=== PATIENT | male | born 1980 | race Caucasian/White ===

== ENCOUNTER 2017-01-18 11:07 | Emergency (ER) | payer SELFPAY ==
[~2017-01-18 11:07] MED LIST: CEPH-460 PO; ZOFR4TAB3 SL
[2017-01-18 11:24] VITALS: BP 155/94; PULSE 68; RESP 20; TEMP 97.8
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
[2017-01-18] MEDS ORDERED: SODIUM CHLORIDE 0.9% FLUSH 5 ML FLUSH IVF PRN (12:15)
[2017-01-18] MEDS ORDERED: MORPHINE SULFATE 4 MG/ML INJ IV PUSH ONE (12:15)
[2017-01-18] MEDS ORDERED: FAMOTIDINE 20 MG/2 ML VIAL IV PUSH ONE (12:15)
[2017-01-18] MEDS ORDERED: ONDANSETRON HCL 4 MG/2 ML VIAL IVP ONE (12:15)
[2017-01-18 12:27] LABS: AUTOMATED NEUTROPHIL # 5.5 TH/MM3 (1.8-7.7); BASOPHIL # 0.1 TH/MM3 (0-0.2); BASOPHIL % 0.7 % (0.0-2.0); EOSINOPHIL # 0.3 TH/MM3 (0-0.4); EOSINOPHIL % 3.4 % (0.0-4.0); HEMATOCRIT 36.3 % (39.0-51.0); HEMO FLAGS DIFF FINAL; LYMPH % 16.4 % (9.0-44.0); LYMPHOCYTE # 1.2 TH/MM3 (1.0-4.8); MEAN CELL VOLUME 89.7 FL (80.0-100.0); MEAN CORPUSCULAR HEMOGLOBIN 30.4 PG (27.0-34.0); MEAN CORPUSCULAR HGB CONC 33.8 % (32.0-36.0); MONO % 4.6 % (0.0-8.0); NEUT % 74.9 % (16.0-70.0); PLATELET COUNT 326 TH/MM3 (150-450); RED BLOOD COUNT 4.04 MIL/MM3 (4.50-5.90); RED CELL DISTRIBUTION WIDTH 14.6 % (11.6-17.2); WHITE BLOOD COUNT 7.4 TH/MM3 (4.0-11.0)
[2017-01-18 12:30] LABS: BLOOD, URINE NEG (NEG); GLUCOSE,URINE NEG (NEG); KETONE, URINE NEG (NEG); NITRITE,URINE NEG (NEG); PH, URINE 7.5 (5.0-8.5)
[2017-01-18 12:37] LABS: METHOD OF COLLECTION CLEAN CATCH; URINE COLOR YELLOW (YELLW/STRAW)
[2017-01-18 12:38] LABS: COMMENT (UR) CULT NOT INDICATED; CULTURE IF INDICATED CULT NOT INDICATED; RBC, URINE 0-3 /hpf (0-3); SQUAMOUS EPITHELIAL CELL URINE 0-5 /hpf (0-5)
[2017-01-18 12:41] LABS: CHLORIDE 107 MEQ/L (98-107); POTASSIUM 3.8 MEQ/L (3.5-5.1); SODIUM (NA) 143 MEQ/L (136-145)
[2017-01-18 12:45] LABS: ANION GAP 6 MEQ/L (5-15); BICARBONATE 30.2 MEQ/L (21.0-32.0); BLOOD UREA NITROGEN 13 MG/DL (7-18)
[2017-01-18 12:48] LABS: ALT (GPT) 26 U/L (12-78); AST (GOT) 26 U/L (15-37); GLOMERULAR FILTRATION RATE 116 ML/MIN (>89)
[2017-01-18 12:49] LABS: TOTAL BILIRUBIN ADULT 0.3 MG/DL (0.2-1.0)
[2017-01-18 12:51] LABS: ALKALINE PHOSPHATASE 55 U/L (45-117)
--- NOTE | 2017-01-18 14:16 | RADHPO ---
EXAM DATE/TIME: 01/18/2017 13:27 [facility] COMPARISON: No previous studies available for comparison. INDICATIONS : Right upper quadrant pain. MEDICAL HISTORY : Polycystic kidney disease. Ulcer. Borderline hypertension. Kidney stones. SURGICAL HISTORY : Cystoscopy. ENCOUNTER: Initial ACUITY: 3 days PAIN SCORE: 9/10 LOCATION: Right upper quadrant MEASUREMENTS: LIVER: 21.8 cm length COMMON DUCT: 3 mm RIGHT KIDNEY: 16.5 x 6.6 x 8.7 cm FINDINGS: LIVER: Normal echotexture without focal lesion or ductal dilatation. Multiple small subcentimeter cysts are seen COMMON DUCT: No intraluminal mass or stone visualized. GALLBLADDER: Contains no stones, demonstrates no wall thickening or pericholecystic fluid. PANCREAS: The visualized portions are within normal limits. RIGHT KIDNEY: No evidence of hydronephrosis or mass. Multiple cysts the largest in the upper pole measuring 44 x 4 8 x 45 mm. Numerous other smaller ones are seen. Several echogenic foci are seen possibility to nonob structing calculi measuring 4-5 mm. CONCLUSION: 1. Multiple subcentimeter hepatic cysts. 2. Multiple right-sided renal cysts most consistent with polycystic kidney disease. 3. Several echogenic foci in the right kidney could be related to nonobstructing calculi. Luis Ewing MD on January 18, 2017 at 14:12 Board Certified Radiologist. This report was verified electronically.
[2017-01-18] MEDS ORDERED: PRIL20CA9 PO (14:26)
[2017-01-18] MEDS ORDERED: PROM25TA5 PO (14:26)
[2017-01-18 14:49] VITALS: BP 141/79
== END 2017-01-18 14:51 | disposition home or self-care (01) ==
LOC: PHED 11:07
DX: R10.11 Right upper quadrant pain (principal); K52.9 Noninfective gastroenteritis and colitis, unspecified; R50.9 Fever, unspecified; Z72.0 Tobacco use; Z86.79 Personal history of other diseases of the circulatory system; Z87.19 Personal history of other diseases of the digestive system; Z87.442 Personal history of urinary calculi
CPT/HCPCS: 76705; 80053; 81001; 83690; 85025; 96374; 96375; 99284; J2270; J2405

== ENCOUNTER 2017-04-11 16:13 | Emergency (ER) | payer SELFPAY ==
[~2017-04-11] VITALS: Ht 195.6 cm; Wt 80.9 kg
[~2017-04-11 16:13] MED LIST changes: -CEPH-460 PO; +PRIL20CA9 PO; +PROM25TA5 PO; -ZOFR4TAB3 SL
[2017-04-11 16:26] VITALS: BP 145/71; PULSE 100; RESP 18; TEMP 98.4; O2SAT 97
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
[2017-04-11] MEDS ORDERED: TRAM50TA PO (17:29)
[2017-04-11] MEDS ORDERED: PENI250T59 PO (17:29)
== END 2017-04-11 17:34 | disposition home or self-care (01) ==
LOC: PHEFT 16:13
DX: K04.7 Periapical abscess without sinus (principal); N28.9 Disorder of kidney and ureter, unspecified; F17.210 Nicotine dependence, cigarettes, uncomplicated
CPT/HCPCS: 99282

== ENCOUNTER 2017-05-09 10:46 | Emergency (ER) | payer SELFPAY ==
[~2017-05-09] VITALS: Ht 195.6 cm; Wt 81.0 kg
[~2017-05-09 10:46] MED LIST changes: +PENI250T59 PO; -PRIL20CA9 PO; -PROM25TA5 PO; +TRAM50TA PO
[2017-05-09 10:48] VITALS: BP 144/90; PULSE 72; RESP 16; TEMP 97.6; O2SAT 99
[2017-05-09] MEDS ORDERED: SODIUM CHLOR 0.9% 1000 ML INJ 1,000 ML IV SCH (11:07)
--- NOTE | 2017-05-09 11:12 | PD ---
HPI Chief Complaint: Flank/Kidney Pain Time Seen by Provider: 11:03 Travel History International Travel<30 days: No Contact w/Intl Traveler<30days: No Traveled to known affect area: No History of Present Illness HPI 36yo M with PMH of polycystic kidney disease presents to the ED with c/o right abdominal pain and right flank pain since yesterday. +NBNB vomiting. Temperature of 100.2F at home. +Hematuria. +Increased urinary frequency. Denies any chest pain, sob, testicular pain or penile discharge. PFSH Past Medical History Heart Rhythm Problems: Yes Diminished Hearing: No Gastrointestinal Disorders: Yes (ULCERS) Hypertension: No (borderline) Kidney Stones: Yes Past Surgical History Genitourinary Surgery: Yes (CYSTOSCOPY for removal of kidneys stones to right kidney) Social History Alcohol Use: Yes (denies use) Tobacco Use: Yes (smokes currently 2-cigs a day for 1 week prior 1 ppd) Substance Use: Yes (MARIJUANA) Allergies-Medications (Allergen,Severity, Reaction): Coded Allergies: Aspirin (Verified Adverse Reaction, Unknown, 05/09/17) hx of ulcers Nonsteroidal Anti-Inflammatory Agts (Verified Adverse Reaction, Unknown, ) states hx of ulcers Reported Meds & Prescriptions Reported Meds & Active Scripts Active Review of Systems Except as stated in HPI: all other systems reviewed are Neg Physical Exam Narrative GENERAL: 36yo F in moderate distress. SKIN: Focused skin assessment warm/dry. HEAD: Atraumatic. Normocephalic. CARDIOVASCULAR: Regular rate and rhythm. No murmur appreciated. RESPIRATORY: No accessory muscle use. Clear to auscultation. Breath sounds equal bilaterally. GASTROINTESTINAL: Abdomen soft, +TTP RLQ, suprapubic. No rebound tenderness or guarding. BACK: +CVA tenderness right. MUSCULOSKELETAL: No obvious deformities. No clubbing. No cyanosis. No edema. NEUROLOGICAL: Awake and alert. No obvious cranial nerve deficits. Motor grossly within normal limits. Normal speech. PSYCHIATRIC: Appropriate mood and affect; insight and judgment normal. Data Data Last Documented VS Vital Signs Date Time Temp Pulse Resp B/P Pulse Ox O2 Delivery O2 Flow Rate FiO2 05/09/17 12:38 62 18 145/76 98 05/09/17 10:48 97.6 Orders Complete Blood Count With Diff (05/09/17 11:07) Comprehensive Metabolic Panel (05/09/17 11:07) Lipase (05/09/17 11:07) Prothrombin Time / Inr (Pt) (05/09/17 11:07) Act Partial Throm Time (Ptt) (05/09/17 11:07) Urinalysis - C+S If Indicated (05/09/17 11:07) Ct Abd/Pel W Iv Contrast(Rout) (05/09/17 11:07) Iv Access Insert/Monitor (05/09/17 11:07) Ecg Monitoring (05/09/17 11:07) Oximetry (05/09/17 11:07) Morphine Inj (Morphine Inj) (05/09/17 11:15) Ondansetron Inj (Zofran Inj) (05/09/17 11:15) Sodium Chlor 0.9% 1000 Ml Inj (Ns 1000 M (05/09/17 11:07) Sodium Chloride 0.9% Flush (Ns Flush) (05/09/17 11:15) Urine Culture (05/09/17 11:40) Iohexol 350 Inj (Omnipaque 350 Inj) (05/09/17 12:53) Ondansetron Inj (Zofran Inj) (05/09/17 13:30) Ceftriaxone Inj (Rocephin Inj) (05/09/17 13:30) Labs Laboratory Tests Test 05/09/17 11:40 White Blood Count 8.1 TH/MM3 Red Blood Count 4.57 MIL/MM3 Hemoglobin 14.1 GM/DL Hematocrit 41.0 % Mean Corpuscular Volume 89.9 FL Mean Corpuscular Hemoglobin 30.8 PG Mean Corpuscular Hemoglobin 34.3 % Concent Red Cell Distribution Width 12.9 % Platelet Count 283 TH/MM3 Mean Platelet Volume 8.0 FL Neutrophils (%) (Auto) 72.2 % Lymphocytes (%) (Auto) 17.7 % Monocytes (%) (Auto) 5.5 % Eosinophils (%) (Auto) 3.5 % Basophils (%) (Auto) 1.1 % Neutrophils # (Auto) 5.9 TH/MM3 Lymphocytes # (Auto) 1.4 TH/MM3 Monocytes # (Auto) 0.4 TH/MM3 Eosinophils # (Auto) 0.3 TH/MM3 Basophils # (Auto) 0.1 TH/MM3 CBC Comment AUTO DIFF Differential Comment AUTO DIFF CONFIRMED Platelet Estimate NORMAL Platelet Morphology Comment NORMAL Prothrombin Time 10.7 SEC Prothromb Time International 1.0 RATIO Ratio Activated Partial 26.1 SEC Thromboplast Time Urine Collection Type VOIDED Urine Color YELLOW Urine Turbidity CLEAR Urine pH 6.0 Urine Specific [place] 1.017 Urine Protein 30 mg/dL Urine Glucose (UA) NEG mg/dL Urine Ketones NEG mg/dL Urine Occult Blood TRACE Urine Nitrite NEG Urine Bilirubin NEG Urine Leukocyte Esterase NEG Urine WBC 6-8 /hpf Urine WBC Clumps RARE Urine Squamous Epithelial 6-8 /hpf Cells Urine Bacteria RARE /hpf Urine Mucus MOD /lpf Microscopic Urinalysis Comment CULTURE INDICATED Sodium Level 140 MEQ/L Potassium Level 3.4 MEQ/L Chloride Level 101 MEQ/L Carbon Dioxide Level 32.7 MEQ/L Anion Gap 6 MEQ/L Blood Urea Nitrogen 16 MG/DL Creatinine 1.00 MG/DL Estimat Glomerular Filtration 86 ML/MIN Rate Random Glucose 79 MG/DL Calcium Level 8.4 MG/DL Total Bilirubin 0.7 MG/DL Aspartate Amino Transf 25 U/L (AST/SGOT) Alanine Aminotransferase 21 U/L (ALT/SGPT) Alkaline Phosphatase 68 U/L Total Protein 7.6 GM/DL Albumin 3.9 GM/DL Lipase 454 U/L [facility] Medical Decision Making Medical Screen Exam Complete: Yes Emergency Medical Condition: Yes Interpretation(s) Laboratory Tests Test 05/09/17 11:40 White Blood Count 8.1 TH/MM3 (4.0-11.0) Red Blood Count 4.57 MIL/MM3 (4.50-5.90) Hemoglobin 14.1 GM/DL (13.0-17.0) Hematocrit 41.0 % (39.0-51.0) Mean Corpuscular Volume 89.9 FL (80.0-100.0) Mean Corpuscular Hemoglobin 30.8 PG (27.0-34.0) Mean Corpuscular Hemoglobin 34.3 % Concent (32.0-36.0) Red Cell Distribution Width 12.9 % (11.6-17.2) Platelet Count 283 TH/MM3 (150-450) Mean Platelet Volume 8.0 FL (7.0-11.0) Neutrophils (%) (Auto) 72.2 % (16.0-70.0) Lymphocytes (%) (Auto) 17.7 % (9.0-44.0) Monocytes (%) (Auto) 5.5 % (0.0-8.0) Eosinophils (%) (Auto) 3.5 % (0.0-4.0) Basophils (%) (Auto) 1.1 % (0.0-2.0) Neutrophils # (Auto) 5.9 TH/MM3 (1.8-7.7) Lymphocytes # (Auto) 1.4 TH/MM3 (1.0-4.8) Monocytes # (Auto) 0.4 TH/MM3 (0-0.9) Eosinophils # (Auto) 0.3 TH/MM3 (0-0.4) Basophils # (Auto) 0.1 TH/MM3 (0-0.2) CBC Comment AUTO DIFF Differential Comment AUTO DIFF CONFIRMED Platelet Estimate NORMAL (NORMAL) Platelet Morphology Comment NORMAL (NORMAL) Prothrombin Time 10.7 SEC (9.8-11.6) Prothromb Time International 1.0 RATIO Ratio Activated Partial 26.1 SEC Thromboplast Time (24.3-30.1) Urine Collection Type VOIDED Urine Color YELLOW (YELLW/STRAW) Urine Turbidity CLEAR (CLEAR) Urine pH 6.0 (5.0-8.5) Urine Specific [place] 1.017 (1.002-1.035) Urine Protein 30 mg/dL (NEG-TRACE) Urine Glucose (UA) NEG mg/dL (NEG) Urine Ketones NEG mg/dL (NEG) Urine Occult Blood TRACE (NEG) Urine Nitrite NEG (NEG) Urine Bilirubin NEG (NEG) Urine Leukocyte Esterase NEG (NEG) Urine WBC 6-8 /hpf (0-5) Urine WBC Clumps RARE (NONE) Urine Squamous Epithelial 6-8 /hpf (0-5) Cells Urine Bacteria RARE /hpf (NONE) Urine Mucus MOD /lpf (OCC) Microscopic Urinalysis Comment CULTURE INDICATED Sodium Level 140 MEQ/L (136-145) Potassium Level 3.4 MEQ/L (3.5-5.1) Chloride Level 101 MEQ/L (98-107) Carbon Dioxide Level 32.7 MEQ/L (21.0-32.0) Anion Gap 6 MEQ/L (5-15) Blood Urea Nitrogen 16 MG/DL (7-18) Creatinine 1.00 MG/DL (0.60-1.30) Estimat Glomerular Filtration 86 ML/MIN (>89) Rate Random Glucose 79 MG/DL (74-106) Calcium Level 8.4 MG/DL (8.5-10.1) Total Bilirubin 0.7 MG/DL (0.2-1.0) Aspartate Amino Transf 25 U/L (15-37) (AST/SGOT) Alanine Aminotransferase 21 U/L (12-78) (ALT/SGPT) Alkaline Phosphatase 68 U/L (45-117) Total Protein 7.6 GM/DL (6.4-8.2) Albumin 3.9 GM/DL (3.4-5.0) Lipase 454 U/L (73-393) Differential Diagnosis Pyelonephritis vs. nephrolithiasis vs. appendicitis vs. colitis Narrative Course 36yo with right flank pain and urinary complaints. Labs reviewed, no leukocytosis. Lipase mildly elevated at 454. UA showed rare WBC clumps. Also squamous. May be contaminated but pt is symptomatic so will treat for UTI. Pt given ceftriaxone, zofran and morphine. Pt reevaluated at bedside and pain is better. Pt is tolerating PO now. CTa/p showed polycystic kidney disease without obvious stone or obstruction. Return precautions given. Diagnosis Primary Impression: Pyelonephritis Patient Instructions: General Instructions Departure Forms: Tests/Procedures Additional Instructions: Please follow up with your PMD in 1-2 days. Return to the ED if symptoms worsen. Med/Other Pt SpecificInfo: Prescription(s) given Scripts Ondansetron Odt (Zofran Odt)4 Mg Tab4 Mg SL Q12HR PRN (Nausea/Vomiting) #6 TAB Ref 0 Prov:Lindy Umaña DO 05/09/17 Ciprofloxacin (Cipro)500 Mg [id number] Mg PO BID 7 Days Ref 0 Prov:Lindy Umaña DO 05/09/17 Disposition: 01 DISCHARGE HOME Condition: Stable Lindy Umaña DO May 09, 2017 11:12
[2017-05-09] MEDS ORDERED: MORPHINE SULFATE 4 MG/ML INJ IV PUSH ONE (11:15)
[2017-05-09] MEDS ORDERED: ONDANSETRON HCL 4 MG/2 ML VIAL IVP ONE (11:15)
[2017-05-09] MEDS ORDERED: SODIUM CHLORIDE 0.9% FLUSH 10 ML FLUSH IV FLUSH PRN (11:15)
[2017-05-09 11:55] LABS: AUTOMATED NEUTROPHIL # 5.9 TH/MM3 (1.8-7.7); BASOPHIL # 0.1 TH/MM3 (0-0.2); BASOPHIL % 1.1 % (0.0-2.0); EOSINOPHIL # 0.3 TH/MM3 (0-0.4); EOSINOPHIL % 3.5 % (0.0-4.0); LYMPH % 17.7 % (9.0-44.0); LYMPHOCYTE # 1.4 TH/MM3 (1.0-4.8); MEAN CELL VOLUME 89.9 FL (80.0-100.0); MEAN CORPUSCULAR HEMOGLOBIN 30.8 PG (27.0-34.0); MEAN CORPUSCULAR HGB CONC 34.3 % (32.0-36.0); MONO % 5.5 % (0.0-8.0); NEUT % 72.2 % (16.0-70.0); PLATELET COUNT 283 TH/MM3 (150-450); RED BLOOD COUNT 4.57 MIL/MM3 (4.50-5.90); RED CELL DISTRIBUTION WIDTH 12.9 % (11.6-17.2); WHITE BLOOD COUNT 8.1 TH/MM3 (4.0-11.0)
[2017-05-09 11:57] LABS: BLOOD, URINE TRACE (NEG); GLUCOSE,URINE NEG (NEG); HEMO FLAGS AUTO DIFF; KETONE, URINE NEG (NEG); NITRITE,URINE NEG (NEG)
[2017-05-09 11:58] LABS: CHLORIDE 101 MEQ/L (98-107); POTASSIUM 3.4 MEQ/L (3.5-5.1); SODIUM (NA) 140 MEQ/L (136-145)
[2017-05-09 12:02] LABS: ANION GAP 6 MEQ/L (5-15); BICARBONATE 32.7 MEQ/L (21.0-32.0); BLOOD UREA NITROGEN 16 MG/DL (7-18)
[2017-05-09 12:03] LABS: APTT (PATIENT) 26.1 SEC (24.3-30.1); PROTHROMBIN TIME - PATIENT 10.7 SEC (9.8-11.6)
[2017-05-09 12:05] LABS: ALT (GPT) 21 U/L (12-78); AST (GOT) 25 U/L (15-37); GLOMERULAR FILTRATION RATE 86 ML/MIN (>89)
[2017-05-09 12:06] LABS: TOTAL BILIRUBIN ADULT 0.7 MG/DL (0.2-1.0)
[2017-05-09 12:08] VITALS: O2SAT 98
[2017-05-09 12:08] LABS: ALKALINE PHOSPHATASE 68 U/L (45-117)
[2017-05-09 12:15] LABS: METHOD OF COLLECTION VOIDED; URINE COLOR YELLOW (YELLW/STRAW)
[2017-05-09 12:16] LABS: MUCUS URINE MOD /lpf (OCC)
[2017-05-09 12:17] LABS: BACTERIA, URINE RARE /hpf; COMMENT (UR) CULTURE INDICATED; CULTURE IF INDICATED CULTURE INDICATED
[2017-05-09 12:29] LABS: PLATELET ESTIMATE SMEAR NORMAL (NORMAL); PLATELET MORPHOLOGY NORMAL (NORMAL); SCAN/DIFF AUTO DIFF CONFIRMED
[2017-05-09 12:38] VITALS: BP 145/76; PULSE 62; RESP 18; O2SAT 98
[2017-05-09] MEDS ORDERED: IOHEXOL 350 MG/ML 10 ML VIAL (for RAD DIAG) IV ONE (12:53)
--- NOTE | 2017-05-09 13:08 | RADHPO ---
EXAM DATE/TIME: 05/09/2017 12:42 [facility] COMPARISON: No previous studies available for comparison. INDICATIONS : Right flank pain with difficulty urinating. IV CONTRAST: 95 cc Omnipaque 350 (iohexol) IV ORAL CONTRAST: No oral contrast ingested. RADIATION DOSE: 10.21 CTDIvol (mGy) MEDICAL HISTORY : Renal calculi. SURGICAL HISTORY : None. ENCOUNTER: Initial ACUITY: 2 days PAIN SCALE: 4/10 LOCATION: Right abdomen/pelvis TECHNIQUE: Volumetric scanning of the abdomen and pelvis was performed. Using automated exposure control and ad justment of the mA and/or kV according to patient size, radiation dose was kept as low as reasonably achievable to obtain optimal diagnostic quality images. FINDINGS: Lung bases are clear. Scattered cysts are seen in the liver. Multiple cysts are seen in enlarged ki dneys that would be consistent with polycystic kidney disease. Spleen, pancreas are unremarkable. Adrenal glands are unremarkable. Pelvic contents are unremarkable. CONCLUSION: Polycystic kidney disease without obvious stone or obstruction. [place] MD FACR on May 09, 2017 at 12:59 Board Certified Radiologist. This report was verified electronically.
[2017-05-09] MEDS ORDERED: ONDANSETRON HCL 4 MG/2 ML VIAL IV PUSH ONE (13:30)
[2017-05-09] MEDS ORDERED: cefTRIAXone INJ 1,000 MG in SODIUM CHLORIDE 0.9% INJ 100 ML IV ONE (13:30)
[2017-05-09] MEDS ORDERED: CIPR-9 PO (13:55)
[2017-05-09] MEDS ORDERED: ZOFR4TAB3 SL (13:55)
[2017-05-09 14:26] VITALS: BP 152/84
== END 2017-05-09 14:29 | disposition home or self-care (01) ==
LOC: PHED 10:46
DX: N12 Tubulo-interstitial nephritis, not specified as acute or chronic (principal); Q61.3 Polycystic kidney, unspecified; F17.210 Nicotine dependence, cigarettes, uncomplicated
CPT/HCPCS: 74177; 80053; 81001; 83690; 85025; 85610; 85730; 87086; 96361; 96365; 96375; 96376; 99285; J0696; J2270; J2405; J7030; Q9967

== ENCOUNTER 2017-06-15 11:15 | Emergency (ER) | payer SELFPAY ==
[~2017-06-15] VITALS: Ht 195.6 cm; Wt 82.3 kg
[~2017-06-15 11:15] MED LIST changes: +CIPR-9 PO; -PENI250T59 PO; -TRAM50TA PO; +ZOFR4TAB3 SL
[2017-06-15 11:21] VITALS: BP 137/63; PULSE 71; RESP 16; TEMP 97.8; O2SAT 96
--- NOTE | 2017-06-15 11:43 | PD ---
HPI Chief Complaint: Injury Time Seen by Provider: 11:20 Travel History International Travel<30 days: No Contact w/Intl Traveler<30days: No Traveled to known affect area: No History of Present Illness HPI 37 year-old male presents to the emergency room for evaluation of testicular pain after injuring his testicles last night. Patient states he was opening a refrigerator door when it bounced off the wall and the door handle slammed back into his testicles. He fell to the ground in pain. Reports excruciating pain for 45 minutes that he stepped but never went away. He had associated nausea but no vomiting. States pain is constant and worse with any movement or when anything touches his testicles such as his clothing. He applied ice last night which was also painful. Patient had grossly bloody urine last night. States today he had significantly decreased but still obvious bloody urine. States he has pain with urination and it is difficult to get the stream to start. He has only urinated 1 time today. Patient has history of chronic kidney disease and followed with a urologist and marketing program coordinator back in [place] but moved to [place] recently and has not found a marketing program coordinator/urologist in the area yet. PFSH Past Medical History Heart Rhythm Problems: Yes Cardiac Catheterization: Yes Diminished Hearing: No Gastrointestinal Disorders: Yes (ULCERS) Genitourinary: Yes (polycystic disease) Kidney Stones: Yes Past Surgical History Genitourinary Surgery: Yes (CYSTOSCOPY for removal of kidneys stones to right kidney) Social History Alcohol Use: Yes (denies use) Tobacco Use: Yes (1/2 ppd) Substance Use: Yes (MARIJUANA) Allergies-Medications (Allergen,Severity, Reaction): Coded Allergies: Aspirin (Verified Adverse Reaction, Unknown, 06/15/17) hx of ulcers Nonsteroidal Anti-Inflammatory Agts (Verified Adverse Reaction, Unknown, ) states hx of ulcers Reported Meds & Prescriptions Reported Meds & Active Scripts Active Lortab (Hydrocodone-Acetaminophen) 5-325 Mg Tab 1 Tab PO Q6H PRN Review of Systems Except as stated in HPI: all other systems reviewed are Neg Physical Exam Narrative GENERAL: Well-nourished, well-developed male in no acute distress. Afebrile. Ambulatory. SKIN: Focused skin assessment warm/dry. HEAD: Normocephalic. EYES: No scleral icterus. No injection or drainage. NECK: Supple, trachea midline. No JVD or lymphadenopathy. CARDIOVASCULAR: Regular rate and rhythm without murmurs, gallops, or rubs. RESPIRATORY: Breath sounds equal bilaterally. No accessory muscle use. GENITOURINARY: Examined in the presence of a nurse. Circumcised. Testes descended bilaterally without evidence of rotation. No lesions or erythema. No urethral discharge. Data Data Last Documented VS Vital Signs Date Time Temp Pulse Resp B/P Pulse Ox O2 Delivery O2 Flow Rate FiO2 06/15/17 12:51 58 20 119/61 98 06/15/17 11:21 97.8 Orders Us Testicles W Doppler (06/15/17 ) Morphine Inj (Morphine Inj) (06/15/17 11:45) Ondansetron Inj (Zofran Inj) (06/15/17 11:45) Iv Access Insert/Monitor (06/15/17 11:34) Sodium Chlorid 0.9% 500 Ml Inj (Ns 500 M (06/15/17 11:45) Urinalysis - C+S If Indicated (06/15/17 12:54) Labs Laboratory Tests Test 06/15/17 13:00 Urine Collection Type CLEAN CATCH Urine Color YELLOW Urine Turbidity SLIGHT Urine pH 8.5 Urine Specific [place] 1.018 Urine Protein NEG mg/dL Urine Glucose (UA) NEG mg/dL Urine Ketones NEG mg/dL Urine Occult Blood NEG Urine Nitrite NEG Urine Bilirubin NEG Urine Leukocyte Esterase NEG Urine Amorphous Sediment FEW Microscopic Urinalysis Comment CULT NOT INDICATED MDM Medical Decision Making Medical Screen Exam Complete: Yes Emergency Medical Condition: Yes Medical Record Reviewed: Yes Differential Diagnosis Testicular trauma, torsion, contusion, epididymitis Narrative Course 37-year-old male presents to the emergency room for evaluation of testicular pain after atraumatic injury last night. Patient states a door handle slammed into his testicle last night causing severe pain. Right worse than left. Pain has decreased slightly but is still constant. He also reports dysuria and hematuria. Physical exam is unremarkable. There is no ecchymosis or obvious deformity of the testicles. No masses. Testes are descended bilaterally. There is extreme tenderness to palpation of the testicles, right worse than left. No penile pain. Vital signs stable. Patient was given IV morphine and Zofran which significantly improved his pain. He was given 500 cc of normal saline. Ultrasound is negative for acute abnormality. There is good blood flow to bilateral testicles. UA is negative for any abnormalities including blood. I spoke to the attending physician, Dr. Lira, who agrees patient is stable for outpatient follow-up. Patient discharged with prescription for Lortab and told to follow up with urologist or return for worsening symptoms. He was given signs and symptoms of testicular torsion. He understands and agrees to plan. Diagnosis Primary Impression: Pain in testicle due to trauma Referrals: Primary Care Physician Urologist Patient Instructions: General Instructions, Testicle Pain (ED) Additional Instructions: Rest and drink plenty of fluids. Lortab as directed, as needed for pain. Do not drink alcohol or drive while taking this medication. Apply ice to the affected area for 20 minutes at a time, as needed for pain and swelling. Follow-up with a primary care physician. Return to the emergency room for worsening symptoms. Med/Other Pt SpecificInfo: Prescription(s) given Scripts Hydrocodone-Acetaminophen (Lortab)5-325 Mg Tab1 Tab PO Q6H PRN (PAIN) #12 TAB Ref 0 Prov:Maty Lira MD 06/15/17 Disposition: 01 DISCHARGE HOME Condition: Stable Chika Gallegos Jun 15, 2017 11:43
[2017-06-15] MEDS ORDERED: MORPHINE SULFATE 4 MG/ML INJ IV PUSH ONE (11:45)
[2017-06-15] MEDS ORDERED: ONDANSETRON HCL 4 MG/2 ML VIAL IV PUSH ONE (11:45)
[2017-06-15] MEDS ORDERED: SODIUM CHLORID 0.9% 500 ML INJ 500 ML IV ONE (11:45)
[2017-06-15 12:51] VITALS: BP 119/61; PULSE 58; RESP 20; O2SAT 98
--- NOTE | 2017-06-15 12:52 | RADRPT ---
EXAM DATE/TIME: 06/15/2017 11:56 [facility] COMPARISON: No previous studies available for comparison. INDICATIONS : Testicular trauma. MEDICAL HISTORY : Kidney stones. Polycystic kidney disease. SURGICAL HISTORY : Cardiac catheterization. ENCOUNTER: Initial ACUITY: 1 day PAIN SCORE: 10/10 LOCATION: Bilateral testicles. MEASUREMENTS: RIGHT TESTICLE: 3.3 x 3.3 x 2.2cm LEFT TESTICLE: 4.5 x 3.2 x 2.4cm FINDINGS: RIGHT TESTICLE: Homogeneous echotexture without intra or extratesticular mass other than 2 mm hypoechoic cyst posteri rashel. Blood flow is symmetric and within normal limits. No hydrocele or varicocele. Epididymis is within normal limits except for 1.6 cm epididymal cyst. LEFT TESTICLE: Homogeneous echotexture without intra or extratesticular mass. Blood flow is symmetric and within no rmal limits. No hydrocele or varicocele. Epididymis is within normal limits. SCROTUM: Within normal limits. CONCLUSION: Normal examination with intact flow to each testicle. Robson Stoddard MD on June 15, 2017 at 12:50 Board Certified Radiologist. This report was verified electronically.
[2017-06-15 13:15] LABS: BLOOD, URINE NEG (NEG); GLUCOSE,URINE NEG (NEG); KETONE, URINE NEG (NEG); NITRITE,URINE NEG (NEG); PH, URINE 8.5 (5.0-8.5)
[2017-06-15 13:16] LABS: METHOD OF COLLECTION CLEAN CATCH; URINE COLOR YELLOW (YELLW/STRAW)
[2017-06-15 13:18] LABS: COMMENT (UR) CULT NOT INDICATED; CULTURE IF INDICATED CULT NOT INDICATED
[2017-06-15] MEDS ORDERED: HYDR-3533 PO (13:24)
== END 2017-06-15 13:34 | disposition home or self-care (01) ==
LOC: PHEFT 11:15
DX: N50.819 Testicular pain, unspecified (principal)
CPT/HCPCS: 76870; 81001; 93975; 96361; 96374; 96375; 99285; J2270; J2405; J7040

== ENCOUNTER 2017-08-02 17:21 | Emergency (ER) | payer SELFPAY ==
[~2017-08-02] VITALS: Ht 182.9 cm; Wt 84.0 kg
[~2017-08-02 17:21] MED LIST changes: -CIPR-9 PO; +HYDR-3533 PO; -ZOFR4TAB3 SL
[2017-08-02 17:22] VITALS: BP 139/81; PULSE 94; RESP 17; TEMP 98.7; O2SAT 97
[2017-08-02] MEDS ORDERED: SODIUM CHLOR 0.9% 1000 ML INJ 1,000 ML IV SCH (18:04)
--- NOTE | 2017-08-02 18:10 | PD ---
HPI Chief Complaint: GI Complaint Time Seen by Provider: 18:08 Travel History International Travel<30 days: No Contact w/Intl Traveler<30days: No Traveled to known affect area: No History of Present Illness HPI 37-year-old male presents to the emergency department for evaluation of abdominal pain. The patient states he has had abdominal pain for several months however this episode started on and he has been nauseous and vomiting since then and unable to keep any food or drink down. Patient denies diarrhea but states he has been constipated for a couple weeks. Patient states he believes he is spiking fevers but has not checked his temperature at home. Patient has history of high blood pressure and polycystic kidney disease. He is new to [place] from [place] arriving here 7 to 8 months ago. He does not have a PCP or hourly shift manager in [place]. He has been out of his medication since arriving in [place]. Patient denies any chest pain or shortness of breath. PFSH Past Medical History Heart Rhythm Problems: Yes Cardiac Catheterization: Yes Diminished Hearing: No Gastrointestinal Disorders: Yes (ULCERS) Genitourinary: Yes (polycystic disease) Kidney Stones: Yes Past Surgical History Genitourinary Surgery: Yes (CYSTOSCOPY for removal of kidneys stones to right kidney) Social History Alcohol Use: Yes Tobacco Use: Yes Substance Use: Yes ("Smoke pot") Allergies-Medications (Allergen,Severity, Reaction): Coded Allergies: aspirin (Unverified Adverse Reaction, Unknown, 08/02/17) hx of ulcers diclofenac (Unverified Adverse Reaction, Unknown, 08/02/17) states hx of ulcers etodolac (Unverified Adverse Reaction, Unknown, 08/02/17) states hx of ulcers flurbiprofen (Unverified Adverse Reaction, Unknown, 08/02/17) states hx of ulcers ibuprofen (Unverified Adverse Reaction, Unknown, 08/02/17) states hx of ulcers indomethacin (Unverified Adverse Reaction, Unknown, 08/02/17) states hx of ulcers ketoprofen (Unverified Adverse Reaction, Unknown, 08/02/17) states hx of ulcers ketorolac (Unverified Adverse Reaction, Unknown, 08/02/17) states hx of ulcers naproxen (Unverified Adverse Reaction, Unknown, 08/02/17) states hx of ulcers oxaprozin (Unverified Adverse Reaction, Unknown, 08/02/17) states hx of ulcers Reported Meds & Prescriptions Reported Meds & Active Scripts Active Bentyl (Dicyclomine HCl) 10 Mg Cap 10 Mg PO TID PRN Ondansetron Odt 4 Mg Tab 4 Mg SL Q6HR PRN Lortab (Hydrocodone-Acetaminophen) 5-325 Mg Tab 1 Tab PO Q6H PRN Review of Systems Except as stated in HPI: all other systems reviewed are Neg Physical Exam Narrative GENERAL: Well-developed well-nourished 37-year-old male in no acute distress presents to the emergency department for evaluation of abdominal pain, nausea and vomiting. SKIN: Focused skin assessment warm/dry. HEAD: Atraumatic. Normocephalic. EYES: Pupils equal and round. No scleral icterus. No injection or drainage. ENT: No nasal bleeding or discharge. Mucous membranes pink and moist. NECK: Trachea midline. No JVD. CARDIOVASCULAR: Regular rate and rhythm. No murmur appreciated. RESPIRATORY: No accessory muscle use. Clear to auscultation. Breath sounds equal bilaterally. GASTROINTESTINAL: Abdomen flat, soft, nondistended with right upper quadrant tenderness. Hepatic and splenic margins not palpable. MUSCULOSKELETAL: No obvious deformities. No clubbing. No cyanosis. No edema. NEUROLOGICAL: Awake and alert. No obvious cranial nerve deficits. Motor grossly within normal limits. Normal speech. PSYCHIATRIC: Appropriate mood and affect; insight and judgment normal. Data Data Last Documented VS Vital Signs Date Time Temp Pulse Resp B/P (MAP) Pulse Ox O2 Delivery O2 Flow Rate FiO2 08/02/17 18:19 62 20 137/65 (89) 97 Room Air 08/02/17 17:22 98.7 Orders Orders Complete Blood Count With Diff (08/02/17 18:04) Comprehensive Metabolic Panel (08/02/17 18:04) Lipase (08/02/17 18:04) Urinalysis - C+S If Indicated (08/02/17 18:04) Ct Abd/Pel W Iv Contrast(Rout) (08/02/17 18:04) Iv Access Insert/Monitor (08/02/17 18:04) Ecg Monitoring (08/02/17 18:04) Oximetry (08/02/17 18:04) NPO (08/02/17 18:04) Ondansetron Inj (Zofran Inj) (08/02/17 18:15) Sodium Chlor 0.9% 1000 Ml Inj (Ns 1000 M (08/02/17 18:04) Sodium Chloride 0.9% Flush (Ns Flush) (08/02/17 18:15) Prochlorperazine Inj (Compazine Inj) (08/02/17 19:15) Potassium Chloride (Kcl) (08/02/17 19:30) Sodium Chlor 0.9% 1000 Ml Inj (Ns 1000 M (08/02/17 19:30) Iohexol 350 Inj (Omnipaque 350 Inj) (08/02/17 20:11) Labs Laboratory Tests Test 08/02/17 18:10 08/02/17 19:20 White Blood Count 11.2 TH/MM3 Red Blood Count 4.99 MIL/MM3 Hemoglobin 15.7 GM/DL Hematocrit 45.8 % Mean Corpuscular Volume 91.8 FL Mean Corpuscular Hemoglobin 31.6 PG Mean Corpuscular Hemoglobin Concent 34.4 % Red Cell Distribution Width 14.1 % Platelet Count 271 TH/MM3 Mean Platelet Volume 9.3 FL Neutrophils (%) (Auto) 73.0 % Lymphocytes (%) (Auto) 17.9 % Monocytes (%) (Auto) 8.1 % Eosinophils (%) (Auto) 0.3 % Basophils (%) (Auto) 0.7 % Neutrophils # (Auto) 8.1 TH/MM3 Lymphocytes # (Auto) 2.0 TH/MM3 Monocytes # (Auto) 0.9 TH/MM3 Eosinophils # (Auto) 0.0 TH/MM3 Basophils # (Auto) 0.1 TH/MM3 CBC Comment DIFF FINAL Differential Comment Blood Urea Nitrogen 17 MG/DL Creatinine 0.80 MG/DL Random Glucose 93 MG/DL Total Protein 7.7 GM/DL Albumin 3.9 GM/DL Calcium Level 8.9 MG/DL Alkaline Phosphatase 71 U/L Aspartate Amino Transf (AST/SGOT) 26 U/L Alanine Aminotransferase (ALT/SGPT) 24 U/L Total Bilirubin 0.4 MG/DL Sodium Level 137 MEQ/L Potassium Level 3.2 MEQ/L Chloride Level 98 MEQ/L Carbon Dioxide Level 31.1 MEQ/L Anion Gap 8 MEQ/L Estimat Glomerular Filtration Rate 110 ML/MIN Lipase 125 U/L Urine Color YELLOW Urine Turbidity CLEAR Urine pH 7.0 Urine Specific [place] 1.027 Urine Protein 30 mg/dL Urine Glucose (UA) TRACE mg/dL Urine Ketones NEG mg/dL Urine Occult Blood NEG Urine Nitrite NEG Urine Bilirubin NEG Urine Urobilinogen 4.0 MG/DL Urine Leukocyte Esterase NEG Urine RBC LESS THAN 1 /hpf Urine WBC LESS THAN 1 /hpf Urine Squamous Epithelial Cells 1 /hpf Urine Mucus FEW /lpf Microscopic Urinalysis Comment CULT NOT INDICATED MDM Medical Decision Making Medical Screen Exam Complete: Yes Emergency Medical Condition: Yes Medical Record Reviewed: Yes Differential Diagnosis Appendicitis versus pancreatitis versus gallbladder disease versus gastroenteritis versus peptic ulcer disease versus UTI versus pyelonephritis Narrative Course 37-year-old male presents to emergency department for evaluation of abdominal pain that started 5 days ago. Patient states he has nausea and vomiting and has been unable to eat or drink anything for the last 5 days. Although patient states he has had intermittent abdominal pain for several months. Patient has a history of hypertension and polycystic kidney disease. He has not taken any medications for these two illnesses for 7-8 months since arriving to [place] from [place]. Patient denies any diarrhea but complains of constipation 2 weeks. Patient denies any chest pain or shortness of breath but believes he is spiking fevers at home although he has not been checking his temperature. CBC, CMP, lipase, UA, ABD CT with IV contrast ordered and pending. 1 L normal saline IV bolus and 4 mg IV Zofran ordered. Patient states he is still feeling nauseous after the Zofran. 10 mg IV Compazine and another 1 L normal saline IV bolus ordered. Chemistry came back with the only abnormality of potassium slightly low at 3.2. 40 mEq potassium by mouth ordered. CBC shows WBCs slightly elevated at 11.2 otherwise no acute abnormalities noted. CMP potassium 3.2 otherwise no acute abnormality LIPASE within normal limits at 125 UA no acute abnormalities ABD CT no acute findings similar to previous CAT scan in April. Patient discharged home with prescription for Zofran and Bentyl. Patient instructed to return to emergency Department with any worsening symptoms or new acute conditions. Patient instructed to stay hydrated and to increase potassium in diet. Diagnosis Primary Impression: Abdominal pain Qualified Codes: R10.11 - Right upper quadrant pain Additional Impression: Gastroenteritis Referrals: Primary Care Physician Patient Instructions: Abdominal Pain (ED), General Instructions Departure Forms: Tests/Procedures, Work Release Enter return to work date: Aug 04, 2017 Additional Instructions: Return to emergency Department with any worsening conditions or new emergent problems. Take Zofran as directed as needed for nausea Take Bentyl as directed as needed for abdominal cramping Drink plenty of fluid and stay hydrated Increase potassium in diet Follow-up with primary care physician Med/Other Pt SpecificInfo: Prescription(s) given Scripts Dicyclomine (Bentyl) 10 Mg Cap 10 MG PO TID Y for ABDOMINAL CRAMPING, #16 CAP 0 Refills Prov: Tayler Ramirez 08/02/17 Ondansetron Odt (Ondansetron Odt) 4 Mg Tab 4 MG SL Q6HR Y for Nausea/Vomiting, #12 TAB 0 Refills Prov: Tayler Ramirez 08/02/17 Disposition: 01 DISCHARGE HOME Condition: Stable Tayler Ramirez Aug 02, 2017 18:10
[2017-08-02] MEDS ORDERED: ONDANSETRON HCL 4 MG/2 ML VIAL IVP ONE (18:15)
[2017-08-02] MEDS ORDERED: SODIUM CHLORIDE 0.9% FLUSH 10 ML FLUSH IV FLUSH PRN (18:15)
[2017-08-02 18:19] VITALS: BP 137/65; PULSE 62; RESP 20; O2SAT 97
[2017-08-02 18:53] LABS: AUTOMATED NEUTROPHIL # 8.1 TH/MM3 (1.8-7.7); BASOPHIL # 0.1 TH/MM3 (0-0.2); BASOPHIL % 0.7 % (0.0-2.0); EOSINOPHIL % 0.3 % (0.0-4.0); HEMATOCRIT 45.8 % (39.0-51.0); LYMPH % 17.9 % (9.0-44.0); MEAN CELL VOLUME 91.8 FL (80.0-100.0); MEAN CORPUSCULAR HEMOGLOBIN 31.6 PG (27.0-34.0); MEAN CORPUSCULAR HGB CONC 34.4 % (32.0-36.0); MONO % 8.1 % (0.0-8.0); PLATELET COUNT 271 TH/MM3 (150-450); RED BLOOD COUNT 4.99 MIL/MM3 (4.50-5.90); RED CELL DISTRIBUTION WIDTH 14.1 % (11.6-17.2); WHITE BLOOD COUNT 11.2 TH/MM3 (4.0-11.0)
[2017-08-02 18:57] LABS: HEMO FLAGS DIFF FINAL
[2017-08-02] MEDS ORDERED: PROCHLORPERAZINE INJ 10 MG/2 ML VIAL IV PUSH ONE (19:15)
[2017-08-02 19:20] LABS: ANION GAP 8 MEQ/L (5-15); AST (GOT) 26 U/L (15-37); BICARBONATE 31.1 MEQ/L (21.0-32.0); BLOOD UREA NITROGEN 17 MG/DL (7-18); CHLORIDE 98 MEQ/L (98-107); GLOMERULAR FILTRATION RATE 110 ML/MIN (>89); POTASSIUM 3.2 MEQ/L (3.5-5.1); SODIUM (NA) 137 MEQ/L (136-145)
[2017-08-02 19:21] LABS: ALKALINE PHOSPHATASE 71 U/L (45-117); ALT (GPT) 24 U/L (12-78); TOTAL BILIRUBIN ADULT 0.4 MG/DL (0.2-1.0)
[2017-08-02] MEDS ORDERED: SODIUM CHLOR 0.9% 1000 ML INJ 1,000 ML IV ONE (19:30)
[2017-08-02] MEDS ORDERED: POTASSIUM CHLORIDE 20 MEQ CONTROLLED RELEASE TAB PO ONE (19:30)
[2017-08-02 19:53] LABS: BLOOD, URINE NEG (NEG); COMMENT (UR) CULT NOT INDICATED; CULTURE IF INDICATED CULT NOT INDICATED; GLUCOSE,URINE TRACE mg/dL (NEG); KETONE, URINE NEG (NEG); MUCUS URINE FEW /lpf (OCC); NITRITE,URINE NEG (NEG); SQUAMOUS EPITHELIAL CELL URINE 1 /hpf (0-5); URINE COLOR YELLOW (YELLW/STRAW)
[2017-08-02] MEDS ORDERED: IOHEXOL 350 MG/ML 10 ML VIAL (for RAD DIAG) IVCONTRAST ONE (20:11)
--- NOTE | 2017-08-02 20:36 | RADRPT ---
EXAM DATE/TIME: 08/02/2017 20:00 [facility] COMPARISON: No previous studies available for comparison. INDICATIONS : Diffuse abdominal pain with nausea and vomiting. IV CONTRAST: 90 cc Omnipaque 350 (iohexol) IV ORAL CONTRAST: No oral contrast ingested. RADIATION DOSE: 6.12 CTDIvol (mGy) MEDICAL HISTORY : Renal calculi. Ulcers. Polycystic kidney disease. SURGICAL HISTORY : None. ENCOUNTER: Initial ACUITY: 4 - 6 days PAIN SCALE: 7/10 LOCATION: All quadrants. TECHNIQUE: Volumetric scanning of the abdomen and pelvis was performed. Using automated exposure control and ad justment of the mA and/or kV according to patient size, radiation dose was kept as low as reasonably achievable to obtain optimal diagnostic quality images. DICOM format image data is available electro nically for review and comparison. FINDINGS: Lung bases are clear. Multiple small hepatic cysts. Spleen demonstrates calcified granulomata. Polycy stic kidneys again noted similar to May 09. No free fluid. No bowel obstruction. No adenopathy. No p elvic masses. No acute bony abnormality. CONCLUSION: 1. No acute findings. Polycystic kidneys similar to study from May 09. No obstructive uropathy, obst ruction, free fluid or free air. Dario Dove MD on August 02, 2017 at 20:31 Board Certified Radiologist. This report was verified electronically.
[2017-08-02] MEDS ORDERED: ONDA4TAB7 SL (21:06)
[2017-08-02] MEDS ORDERED: DICY10 PO (21:06)
== END 2017-08-02 21:42 | disposition home or self-care (01) ==
LOC: NEPC 17:21
DX: K52.9 Noninfective gastroenteritis and colitis, unspecified (principal); I10 Essential (primary) hypertension; Q61.3 Polycystic kidney, unspecified; Z72.0 Tobacco use; Z88.6 Allergy status to analgesic agent; Z88.8 Allergy status to other drugs, medicaments and biological substances; Z79.899 Other long term (current) drug therapy
CPT/HCPCS: 74177; 80053; 81001; 83690; 85025; 96361; 96374; 96375; 99285; J0780; J2405; J7030; Q9967